=== PATIENT | male | born 1995 | race Two or more races ===

== ENCOUNTER 2022-09-03 01:56 | Emergency (ER) | payer MEDICAID ==
[~2022-09-03] VITALS: Ht 182.9 cm; Wt 64.7 kg
[2022-09-03] MEDS ORDERED: LIDOCAINE 1% HCL (LOCAL ANESTH.) INJ 20ML MDV ID ONE (03:00)
[2022-09-03] MEDS ORDERED: TETANUS-DIPTH-ACEL PERTUSSIS 0.5ML SYR Tdap IM ONE (03:00)
[2022-09-03] MEDS ORDERED: CEPH500C PO (03:08)
[2022-09-03] MEDS ORDERED: IBU600T PO (03:08)
[2022-09-03] MEDS ORDERED: MUPI2OIN2 EX (03:08)
[2022-09-03 04:40] VITALS: BP 125/60; PULSE 70; RESP 16; TEMP 97.7; O2SAT 100
== END 2022-09-03 04:53 | disposition home or self-care (01) ==
LOC: ER 01:56
DX: S61.012A Laceration without foreign body of left thumb without damage to nail, initial encounter (principal); Z79.1 Long term (current) use of non-steroidal anti-inflammatories (NSAID); Z79.899 Other long term (current) drug therapy; W26.8XXA Contact with other sharp object(s), not elsewhere classified, initial encounter; Y93.89 Activity, other specified; Y92.098 Other place in other non-institutional residence as the place of occurrence of the external cause; Y99.8 Other external cause status
CPT/HCPCS: 12001; 90471; 90715